=== PATIENT | male | born 1980 | race Caucasian/White ===

== ENCOUNTER 2017-08-05 03:51 | Emergency (ER) | payer MEDICAID ==
[2017-08-05 04:33] LABS: BASOPHIL % 0.4 % (0-2); PLATELET COUNT 291 x10^3mcL (130-400); RED CELL DISTRIBUTION WIDTH 13.9 % (11.5-14.5)
[2017-08-05 04:48] LABS: CALCIUM 8.9 mg/dL (8.5-10.1); CARBON DIOXIDE 22.4 mmol/L (21-32); CHLORIDE SERUM 103 mmol/L (98-107); GFR1 > 60 mL/min; GLUCOSE SERUM 177 mg/dL (74-106); POTASSIUM SERUM 3.8 mmol/L (3.5-5.1); SODIUM SERUM 136 mmol/L (136-145)
[2017-08-05 04:52] LABS: ALBUMIN 3.5 g/dL (3.4-5.0); ALKALINE PHOSPHATASE 87 U/L (46-116); ALT/SGPT 38 U/L (16-63); AMYLASE 77 U/L (25-115); AST/SGOT 24 U/L (15-37); LIPASE 393 IU/L (73-393); URIC ACID 5.1 mg/dL (3.5-7.2)
[2017-08-05 06:15] VITALS: BP 149/98
== END 2017-08-05 06:17 | disposition home or self-care (01) ==
LOC: ED 03:51
PROVIDERS: Emergency Medicine
DX: N23 Unspecified renal colic (principal); Z88.0 Allergy status to penicillin
CPT/HCPCS: 83880; J1885; J2270; J2405; J7030